=== PATIENT | female | born 1970 | race Two or more races ===

== ENCOUNTER → 2024-04-20 | Outpatient (CLI) | payer BC, SELFPAY ==
--- NOTE | 2024-04-20 10:30 | XR_ITS ---
Examination: MRI lumbar spine without contrast Date and time of exam: April 20, 2024 1112 hours INDICATIONS: Low back pain 8 years radiating down the left leg with numbness and paresthesias in the left leg COMPARISON: March 03, 2022 Technique: Multiple MRI axial and sagittal sections lumbar spine. Sagittal T2-weighted images, TR 3500, TE 118 T1 weighted transverse sections, TR 688 T8.5, T2-weighted sagittal sections T1 weighted sagittal sections TR 621, TE 30 T2 axial sections, TR 4, 190, TE 84. Findings: Adequate alignment lumbar vertebral bodies on the lateral view No lumbar fracture Normal marrow signal lumbar vertebral bodies No spondylolisthesis Mild distention posteriorly L5-S1 L5-S1 partially extruded 6 mm central lumbar disc bulge contiguous with the right S1 nerve root and left S1 nerve root L4-L5 6 mm central right paracentral disc bulge indenting the ventral margin thecal sac L3-L4 2 mm central lumbar disc bulge L2-L3 no disc protrusion L1-L2 no disc protrusion IMPRESSION: L5-S1 partially extruded 6 mm central lumbar disc bulge contiguous with the right and left S1 nerve roots L4-L5 6 mm central right paracentral disc bulge indenting the ventral margin thecal sac L3-L4 2 mm central lumbar disc bulge
== END | disposition home or self-care (01) ==
PROVIDERS: PCP Physician Assistant; Referring Provider Physician Assistant; Visit Provider Physician Assistant
DX: M51.27 Other intervertebral disc displacement, lumbosacral region (principal); M51.369 Other intervertebral disc degeneration, lumbar region without mention of lumbar back pain or lower extremity pain
CPT/HCPCS: 72148